=== PATIENT | male | born 1960 | race Caucasian/White ===

== ENCOUNTER 2017-03-07 00:05 | Emergency (ER) | payer OTHER ==
[~2017-03-07] VITALS: Ht 182.9 cm; Wt 110.3 kg
[2017-03-07 00:32] LABS: HEMATOCRIT 42.9 % (38.0-50.0); MCH 30.5 PG (29.0-34.0); MCV 89.6 FL (86-99); MEAN PLAT.VOLUME 9.6 uM^3 (9.0-12.4); PLATELET COUNT 274 K/uL (156-360); RBC DIS.WIDTH-CV 12.1 % (11.8-14.6); RBC DIS.WIDTH-SD 39.9 % (39-53); RED BLOOD COUNT 4.79 M/uL (4.00-5.50)
[2017-03-07 00:40] LABS: CHLORIDE 108 mEq/L (99-109); POTASSIUM 3.8 mEq/L (3.7-5.4); SODIUM 139 mEq/L (136-147)
[2017-03-07 00:42] LABS: GLUCOSE 133 mg/dL (70-99)
[2017-03-07 00:44] LABS: ANION GAP 11 MEQ/L (2-14)
[2017-03-07 00:46] LABS: GFR ESTIMATE (CALCULATED) 55 mL/min/
[2017-03-07 00:47] LABS: UREA NITROGEN (BUN) 22 mg/dL (9-23)
[2017-03-07 00:53] LABS: TROP-I INTERPRETATION NEGATIVE; TROPONIN-I < 0.01 ng/mL (0.0-0.30)
[2017-03-07 02:27] LABS: D-DIMER ELISA < 150.00 ng/mLDDU (<230)
[2017-03-07 03:03] LABS: INTER. NORMALIZED RATIO 0.9; PROTHROMBIN TIME 10.5 SEC (10.2-12.9)
[2017-03-07 03:05] LABS: PTT 28.7 SEC (25-37)
[2017-03-07 03:23] LABS: TROP-I INTERPRETATION NEGATIVE; TROPONIN-I 0.02 ng/mL (0.0-0.30)
[2017-03-07 10:27] VITALS: BP 120/85
== END 2017-03-07 10:30 | disposition short-term general hospital (02) ==
LOC: EME 00:05
PROVIDERS: Emergency Medicine
DX: R07.9 Chest pain, unspecified (principal); R94.31 Abnormal electrocardiogram [ECG] [EKG]; I25.10 Atherosclerotic heart disease of native coronary artery without angina pectoris; E78.5 Hyperlipidemia, unspecified; I10 Essential (primary) hypertension; Z95.5 Presence of coronary angioplasty implant and graft; Z87.891 Personal history of nicotine dependence
CPT/HCPCS: 71020; 80048; 84484; 85027; 85379; 85610; 85730; 93005; 99281; 99285